=== PATIENT | female | born 1985 | race American Indian/Alaskan Native ===

== ENCOUNTER 2022-03-23 07:36 | Day surgery (SDC) | payer OTHER, MEDICAID ==
[~2022-03-23 07:36] MED LIST: ceFAZolin/Water 2 GM/20 ML 2 GM/20 ML SYRINGE IV NR
[2022-03-23] MEDS ORDERED: SODIUM CHLORIDE 0.9% 1000 ML 1,000 ML ONE (08:22)
--- NOTE | 2022-03-23 08:58 | Anesthesia Consultation ---
Anesthesia Consult and Med Hx Date of service: 03/23/22 - Airway Anesthetic Teeth Evaluation: Poor (multiple missing teeth, no loose teeth) ROM Head & Neck: Adequate Mental/Hyoid Distance: Adequate Mallampati Class: Class II Intubation Access Assessment: Probably Good - Pre-Operative Health Status ASA Pre-Surgery Classification: ASA3 Proposed Anesthetic Plan: General - Pulmonary Hx Smoking: No Hx Asthma: No COPD: No Hx Pneumonia: Yes Hx Sleep Apnea: No - Cardiovascular System Hx Hypertension: Yes Hx Peripheral Vascular Disease: No - Central Nervous System Hx Psychiatric Problems: No - Endocrine Hx End Stage Renal Disease: Yes Hx Insulin Dependent Diabetes: Yes - Hematic Hx Anemia: Yes Hx Sickle Cell Disease: No - Other Systems Hx Alcohol Use: No Hx Substance Use: No Hx Cancer: No Hx Obesity: Yes (BMI 38.4)
--- NOTE | 2022-03-23 08:59 | Anesthesia Day of Surgery ---
Anesthesia Day of Surgery - Day of Surgery Patient Examined: Yes Patient H&P Reviewed: Yes Patient is NPO: Yes Beta Blockers: Yes (coreg last night)
[2022-03-23] MEDS ORDERED: FAMOTIDINE 20 MG/2 ML INJ IV NR (09:00)
[2022-03-23] MEDS ORDERED: SCOPOLAMINE TRANSDERMAL PATCH 72 HR TD NR (09:00)
[2022-03-23] MEDS ORDERED: MIDAZOLAM 2 MG/2 ML INJ IV NR (09:00)
[2022-03-23] MEDS ORDERED: SODIUM CHLORIDE 0.9% 1000 ML 1,000 ML IV SCH (09:00)
[2022-03-23 10:09] LABS: Calcium 9.1 mg/dL (8.4-10.2)
[2022-03-23 11:41] LABS: Hematocrit 31.7 % (30.3-42.9); Hemoglobin 10.3 gm/dl (10.1-14.3); Mean Corpuscular HGB Conc 32 % (30-34); Mean Corpuscular Volume 82 fl (79-97); Platelet Count 295 K/mm3 (140-440); Red Blood Count 3.88 M/mm3 (3.65-5.03); Red Cell Distribution Width 18.6 % (13.2-15.2)
[2022-03-23] MEDS ORDERED: propofoL 200 MG/20 ML VIAL IV ONE (11:43)
[2022-03-23] MEDS ORDERED: fentaNYL 100 MCG/2 ML INJ ONE ×2 (11:43→13:02)
[2022-03-23] MEDS ORDERED: LIDOCAINE MPF (2%) 20 MG/1 ML VIAL 5 ML ONE (11:47)
[2022-03-23] MEDS ORDERED: BUPIVACAINE/PF (0.5%) 5 MG/1 ML 30 ML VIAL INFILTRATI ONE ×2 (12:28→12:53)
[2022-03-23] MEDS ORDERED: HEPARIN 10,000 UNITS/10 ML VIAL ONE (12:29)
[2022-03-23] MEDS ORDERED: SODIUM CHLORIDE 0.9% 500 ML 500 ML ONE (12:29)
[2022-03-23] MEDS ORDERED: ONDANSETRON 4 MG/2 ML INJ ONE (12:41)
[2022-03-23] MEDS ORDERED: SODIUM CHLORIDE 0.9% 500 ML IVPB IRRIGATION ONE (12:52)
[2022-03-23] MEDS ORDERED: HEPARIN 10,000 UNITS/10 ML VIAL IV ONE (12:52)
--- NOTE | 2022-03-23 14:10 | Short Stay Summary ---
Short Stay Documentation Date of service: 03/23/22 Narrative H&P: See H&P - History H&P: obtained from office - Allergies and Medications Current Medications: Allergies Sulfa (Sulfonamide Antibiotics) Allergy (Verified 03/16/22 13:42) Hives vancomycin Allergy (Verified 03/16/22 13:42) Hives ITCHING Home Medications Medication Instructions Recorded Confirmed Last Taken Type Cinacalcet [Sensipar] 30 mg PO 3XW 03/16/22 03/23/22 03/22/22 21:00 History Ferrous Sulfate [Iron 325 MG] 325 mg PO QDAY 03/16/22 03/23/22 03/22/22 09:00 History Insulin NPH, Human [NovoLIN N] 1 unit SUB-Q QDAY 03/16/22 03/23/22 03/22/22 21:00 History Pantoprazole [Protonix] 40 mg PO QDAY 03/16/22 03/23/22 03/22/22 09:00 History Torsemide [Demadex] 40 mg PO QDAY 03/16/22 03/23/22 03/22/22 09:00 History amLODIPine [Norvasc] 10 mg PO DAILY 03/16/22 03/23/22 03/22/22 21:00 History carvediloL [Coreg] 25 mg PO BID 03/16/22 03/23/22 03/22/22 21:00 History Active Medications Famotidine (Famotidine 20 Mg/2 Ml Inj) 20 mg IV PREOP NR Stop: 03/23/22 20:00 Last Admin: 03/23/22 12:00 Dose: 20 mg Cefazolin Sodium (Ancef/Sterile Water 2 Gm/20 Ml) 2 gm in 20 mls @ 80 mls/hr IV PREOP NR; Protocol Stop: 03/23/22 20:00 Sodium Chloride (Nacl 0.9% 1000 Ml) 1,000 mls @ 42 mls/hr IV DIRECT PRISCILLA Stop: 03/23/22 23:00 Last Admin: 03/23/22 12:00 Dose: 42 mls/hr Midazolam HCl (Midazolam 2 Mg/2 Ml Inj) 2 mg IV PREOP NR Stop: 03/23/22 23:59 Scopolamine (Scopolamine Transdermal Patch 72 Hr) 1 each TD PREOP NR Stop: 03/23/22 20:00 Last Admin: 03/23/22 11:30 Dose: 1 each - Brief post op/procedure progress note Date of procedure: 03/23/22 Pre-op diagnosis: End-Stage Renal Disease Post-op diagnosis: same Procedure: Creation of Left Radiocephalic ([place]) Arteriovenous Fistula Anesthesia: VIRAL Surgeon: FEI ZENG Estimated blood loss: minimal Pathology: none Condition: stable - Disposition Condition at discharge: Good Disposition: 01 HOME / SELF CARE / HOMELESS Short Stay Discharge Plan Activity: other (No heavy lifting with left arm for 2 weeks. Use stress ball left hand as often as possible.) Wound: open to air, keep clean and dry, other (Okay to wash the left arm incisions with soap and water but do not soak in water for 2 weeks.) Follow up with: REYMUNDO JONES JR, MD [Primary Care Provider] - 7 Days FEI ZENG MD [Staff Physician] - 14 Days Prescriptions: HYDROcodone/APAP 5-325 [[place] 5/325] 1 each PO Q4HR PRN #30 tablet PRN Reason: Pain
--- NOTE | 2022-03-23 14:11 | Operative Report ---
Operative Report Operative Report: Date of procedure: 03/23/2022 Pre-operative diagnosis: End-Stage Renal Disease Post-operative diagnosis: End-Stage Renal Disease Procedure(s): Creation of Left Radiocephalic ([place]) Arteriovenous Fistula Surgeon: Dionte Leung MD Welding Engineer: None Anesthesia: General Endotracheal Anesthesia EBL: Minimal Counts: Correct Complications: None Condition: Stable Findings: Successful creation of left arm AV fistula with palpable thrill at the completion of the case. Specimen: None Indication: The patient is a 37-year-old female with history of end-stage renal disease who is currently on hemodialysis through a right internal jugular permacath. She is in need of permanent dialysis access and has adequate vein for creation of a left arm arteriovenous fistula. She was given the risk, benefits, and alternative procedures and consented to the procedure. Description of Procedure: The patient was brought to the operating room and laid in supine position. After timeout was performed general endotracheal anesthesia was achieved and her left arm was prepped and draped in normal sterile fashion. A longitudinal incision was then created on the distal wrist, centered between the cephalic vein and the radial artery. The dissection was carried down to the radial artery using sharp dissection and the radial artery was dissected circumferentially and controlled with vessel loops. The cephalic vein was then dissected circumferentially, ligating side branches with 3-0 silk ties and dividing them. The cephalic vein was then divided distally transpose to the radial artery. A 3 Julian was then advanced through the cephalic vein proximally to ensure patency. The vein was then flushed with heparinized saline and control of the bulldog clamp. The patient was systemically heparinized with 3000 units of heparin IV and the radial artery clamped with DeBakey clamps. An arteriotomy was then created using an 11 blade and Handy scissors. An end-to-side anastomosis was created between the cephalic vein and the radial artery using a single 6-0 Prolene in running fashion. Prior to completing the anastomosis I flashed the artery both retrograde and antegrade and advanced a 3 Julian into the proximal portion of the artery to break the spasm. I then completed the anastomosis and removed all clamps allowing flow into the fistula which had a palpable thrill. Hemostasis within the wound was achieved with a combination of manual pressure and Quick Clot. Once hemostasis was achieved the wounds were closed in 2 layers using a 3-0 Vicryl in running fashion in the deep dermal layers, 4-0 Monocryl in a running fashion the subcuticular layer, and Dermabond as a dressing. The patient tolerated the procedure well. All sponge, needle, and instrument counts were correct. The patient was taken to the recovery area in stable condition.
--- NOTE | 2022-03-23 14:34 | Post Anesthesia Evaluation ---
- Post Anesthesia Evaluation Patient Participated: Yes Airway Patent: Yes Stable Respiratory Function: Yes Nausea/Vomiting: No Temp > 96.8F: Yes Pain Manageable: Yes Adequeate Hydration: Yes Anesthesia Complications: No
[2022-03-23] MEDS ORDERED: KETOROLAC 30 MG/1 ML INJ IV PRN (15:20)
[2022-03-23] MEDS ORDERED: HYDROmorphone 0.5 MG/0.5 ML INJ IV PRN (15:20)
[2022-03-23] MEDS ORDERED: ONDANSETRON 4 MG/2 ML INJ IV PRN (15:20)
[2022-03-23 17:04] VITALS: BP 151/76
== END 2022-03-23 16:20 | disposition home or self-care (01) ==
LOC: OR 07:36
PROVIDERS: ATTEND Surgery Vascular Surgery
DX: I12.0 Hypertensive chronic kidney disease with stage 5 chronic kidney disease or end stage renal disease (principal); E11.22 Type 2 diabetes mellitus with diabetic chronic kidney disease; N18.6 End stage renal disease; E66.9 Obesity, unspecified; D64.9 Anemia, unspecified; Z68.38 Body mass index [BMI] 38.0-38.9, adult; Z88.2 Allergy status to sulfonamides; Z88.8 Allergy status to other drugs, medicaments and biological substances; Z79.4 Long term (current) use of insulin; Z79.899 Other long term (current) drug therapy; Z87.01 Personal history of pneumonia (recurrent); Z98.890 Other specified postprocedural states
CPT/HCPCS: 36415; 36821; 80048; 81025; 82962; 85027; C1757; J0690; J1170; J1644; J2405; J2704; J3010; J3490; J7030; J7040